=== PATIENT | female | born 1960 | race Caucasian/White ===

== ENCOUNTER 2020-07-09 17:29 | Emergency (ER) | payer OTHER ==
[~2020-07-09] VITALS: Ht 170.2 cm; Wt 108.6 kg
[2020-07-09] MEDS ORDERED: ondansetron 4mg rapidly disintigrating tab PO ONE (17:35)
[2020-07-09 18:21] VITALS: BP 141/87
[2020-07-09] MEDS ORDERED: ketorolac trometh inj. 60 MG/2 ML VIAL IM ONE (18:40)
[2020-07-09] MEDS ORDERED: orphenadrine citrate 60mg/2ml inj. IM ONE (18:40)
[2020-07-09] MEDS ORDERED: ORPH100T2 PO (18:58)
[2020-07-09] MEDS ORDERED: NAPR-56 PO (18:58)
== END 2020-07-09 19:22 | disposition home or self-care (01) ==
LOC: ER 17:30
DX: S13.4XXA Sprain of ligaments of cervical spine, initial encounter (principal); M54.2 Cervicalgia; R42 Dizziness and giddiness; R51.9 Headache, unspecified; Z88.0 Allergy status to penicillin; Z79.899 Other long term (current) drug therapy; V87.7XXA Person injured in collision between other specified motor vehicles (traffic), initial encounter; Y93.89 Activity, other specified; Y92.89 Other specified places as the place of occurrence of the external cause; Y99.8 Other external cause status
CPT/HCPCS: 72040; 72125; 96372; 99284; J1885; J2360